=== PATIENT | male | born 1940 | race Caucasian/White ===

== ENCOUNTER 2016-06-08 07:47 | Inpatient (IN) | payer MEDICARE, OTHER ==
[~2016-06-08] VITALS: Ht 170.2 cm; Wt 97.3 kg
--- NOTE | 2016-06-08 05:46 | MH ---
cc: ROBERT SOLANO M.D. DATE OF ADMISSION: 06/08/2016 ADMISSION DIAGNOSIS Right sacroiliitis. HISTORY This is a 75-year-old patient with significant right hip pain. Investigative studies show evidence of inflammatory changes of the right sacroiliac joint. Despite conservative care the patient is painful and symptomatic. This patient has had several injections. These injections relieved 100% of the pain for a short period of time but the pain returns. The patient is felt to be a candidate for surgical treatment. PAST MEDICAL HISTORY, SOCIAL HISTORY, FAMILY HISTORY, REVIEW OF SYSTEMS See attached notes. PHYSICAL EXAMINATION HEENT: Normocephalic, atraumatic. Pupils equal, round, reactive to light and accommodation. Extraocular motions intact. NECK: Supple. CHEST: Clear. HEART: Regular rate and rhythm. ABDOMEN: Soft, nontender with normoactive bowel sounds. MUSCULOSKELETAL EXAMINATION: Thoracolumbar spine restricted range of motion, pain with range of motion. Tenderness directly over the sacroiliac joint. Provocative maneuvers are positive for Ganga's maneuver, thigh thrust, compression and distraction across the sacroiliac joint. NEUROLOGIC AND VASCULAR EXAMINATION: Within normal limits. IMPRESSION Right sacroiliitis. PLAN Right sacroiliac joint fusion with Zyga fusion system and bone grafting. CONSENT There are risks with surgery including infection, bleeding, loss of motion, continued pain, need for further surgery, neurologic and vascular injury. The patient understands these issues and wishes to press on with surgery as outlined above. MD NEO Tapia/RICHAR /9:36 PM /4:38 AM
[~2016-06-08 07:47] MED LIST: CALC1TAB53 PO; CELE1CAP8 PO; CHOL1CAP60 CHEW; FERR1TAB36 PO; OMEP20TA PO; OXYC1TAB63 PO; PRIN5TAB PO; THERTAB27 PO
[2016-06-08 08:27] VITALS: BP 137/80; PULSE 78; RESP 18; TEMP 97.9; O2SAT 95
[2016-06-08] MEDS ORDERED: VANCOMYCIN HCL 1000 MG VIAL ONE (08:30)
[2016-06-08] MEDS ORDERED: SODIUM CHLORID 0.9% 500 ML IV SCH (08:30)
[2016-06-08] MEDS ORDERED: INSULIN HUMAN REGULAR 1,000 UNITS/10 ML VIAL SQ PRN (08:30)
[2016-06-08] MEDS ORDERED: SODIUM CHLOR 0.9% 250 ML INJ 250 ML ONE (08:30)
[2016-06-08] MEDS ORDERED: METOPROLOL TARTRATE 25 MG TAB PO PRN (08:30)
[2016-06-08] MEDS ORDERED: LACTATED RINGER'S 1000 ML IV SCH (08:30)
[2016-06-08] MEDS ORDERED: POVIDONE IODINE 7.5% SCRUB 118 ML BOTTLE TOP SCH (08:45)
[2016-06-08] MEDS ORDERED: VANCOMYCIN 1000 MG/NS 250 ML (for <70 kg) IV SCH ×2 (08:45)
[2016-06-08] MEDS ORDERED: ceFAZolin 2 GM PREMIX 50 ML IV SCH (08:45)
[2016-06-08] MEDS ORDERED: BUPIVACAINE/EPINEPHRINE 0.25% 50 ML VIAL ONE (08:56)
[2016-06-08] MEDS ORDERED: GENTAMICIN SULFATE 80 MG/2 ML VIAL ONE (08:56)
[2016-06-08] MEDS ORDERED: LACTATED RINGER'S 1000 ML INJ 1,000 ML IV ONE (12:00)
[2016-06-08] MEDS ORDERED: PROPOFOL 200 MG/20 ML AMP IV ONE (12:00)
[2016-06-08] MEDS ORDERED: NEOSTIGMINE 3 MG/3 ML SYR IV ONE (12:00)
[2016-06-08] MEDS: LACTATED RINGER'S 1000 ML INJ 1,000 ML IV SCH (12:16)
[2016-06-08] MEDS ORDERED: MAGNESIUM HYDROXIDE SUSP 30 ML CUP PO PRN (12:30)
[2016-06-08] MEDS ORDERED: BISACODYL 10 MG SUPP PR PRN (12:30)
[2016-06-08] MEDS ORDERED: NALOXONE HCL 0.4 MG/ML AMP IV PRN (12:30)
[2016-06-08] MEDS ORDERED: oxyCODONE/ACETAMINOPHEN 5 MG/325 MG TAB PO PRN ×2 (12:30)
[2016-06-08] MEDS ORDERED: ALUMINUM/MAGNESIUM/SIMETH 30 ML CUP PO PRN (12:30)
[2016-06-08] MEDS ORDERED: ONDANSETRON HCL 4 MG/2 ML VIAL IVP PRN (12:30)
[2016-06-08] MEDS ORDERED: Post-op Orders (for Pharmacy) MISC XX ONE (12:30)
[2016-06-08] MEDS ORDERED: TEMAZEPAM 15 MG CAP PO PRN (12:30)
[2016-06-08] MEDS ORDERED: MORPHINE SULFATE 8 MG/ML INJ IV PUSH PRN (12:30)
[2016-06-08] MEDS ORDERED: SODIUM CHLORIDE 0.9% FLUSH 5 ML FLUSH IVF PRN (12:30)
--- NOTE | 2016-06-08 12:31 | PD.OP ---
cc: Raleigh Zacarias MD Operative Report Date of Surgery: Jun 08, 2016 Preoperative Diagnosis: Right sacroiliitis Postoperative Diagnosis: Same Procedure: Right sacroiliac joint fusion with internal fixation. Bone grafting of the sacroiliac joint Anesthesia: Gen. Surgeon: Raleigh Zacarias Food Broker(s): TRACEY Francisco Operation and Findings: EBL: 100 cc INDICATIONS: This patient is a 75-year-old male with significant sacroiliac joint dysfunction. The patient has had extensive conservative care including multiple injections, oral medications, altered activity and use of an assistive gait aid. He has failed all conservative care which has extended for greater than 1 year. He presents now for surgical treatment. NOTE: Betty Francisco PA-C was present for the entire surgical procedure as my floor covering printer assistant. In my medical opinion her skill and care was necessary for proper management of this patient. COMPANY: [email or web address] Primary screw: 60 mm. Secondary screw: 5 mm PROCEDURE: The patient was brought the operating room and anesthetized in the supine position. The patient was positioned prone on a Ethan table. Fluoroscopy was brought in from the opposite side of the table. Inlet view, utlet view and lateral views were taken. Skin markings were prepared. A 1.5 cm incision was made in line with a line from the greater sciatic notch and the cephalad border of the sacrum. We used a starting point that was approximately 1/2-2/3 from the sciatic notch. A pin was then placed across the sacroiliac joint controlling position in the inlet view, outlet view and lateral. The pin was positioned to the edge of the sacroiliac joint and into the sacroiliac joint. A proper tube was utilized. This was then drilled to proper size and a guide tube was fixated to the bone. We used the SImmetry system. We then used a scraper followed by use of a series of cutting devices gaining entrance into the sacroiliac joint and opening and removing cartilaginous material from the sacroiliac joint. Reamings from the drilling was saved and used with demineralized bone matrix. We used the proper size reamers which were deployed to their fullest extent. We then placed bone graft using the bone graft placement device. And then advanced the pin into the ilium. This was measured carefully for proper length screw. We used the drill to go past the other cortex of the sacroiliac joint. We used a primary screw first placing into good position within the sacral ala and in the region of the S1 vertebral body. Position was very satisfactory A second pin was advanced placing it between the first and second sacral foramen. This was checked in the inlet view outlet view and lateral. This was drilled and measured properly for a proper length secondary screw. The secondary screw was positioned without complication. Intraoperative x-rays were obtained. Alignment was satisfactory. The wound was irrigated copiously with antibiotic irrigation. The fascia was closed with interrupted Vicryl suture skin and subcutaneous tissue with 3-0 Vicryl suture followed by Dermabond. The sponge count needle counts and sponge counts were all correct. The patient tolerated the procedure well as taken to the recovery room in satisfactory condition. FINDINGS: Significant sclerotic changes of the sacroiliac joint were noted. There was no complication was noted. The patient appeared to tolerate the procedure well. Raleigh Zacarias MD Jun 08, 2016 12:31
[2016-06-08] MEDS ORDERED: OXYC1TAB63 PO (12:32)
[2016-06-08] MEDS ORDERED: MORPHINE SULFATE 4 MG/ML INJ ONE (12:42)
[2016-06-08] MEDS ORDERED: ARTIFICIAL TEARS OPTH OINT 3.5 APPLIC/3.5 GM TUBO ONE (12:42)
[2016-06-08] MEDS ORDERED: DO NOT ADM ANY ANTICOAGULANT DRUGS XX PRN (13:00)
[2016-06-08] MEDS ORDERED: *morphine SULFATE 8 MG/ML PERIprocedure ONLY ONE ×2 (13:18→13:32)
[2016-06-08] MEDS: MORPHINE SULFATE 30 MG/30 ML PCA IV SCH (13:24)
[2016-06-08] MEDS ORDERED: PCA - TOTAL MG MORPHINE DELIVERED PER SHIFT SCH (14:00)
--- NOTE | 2016-06-08 14:11 | RADRPT ---
EXAM DATE/TIME: 06/08/2016 10:45 [facility] COMPARISON: No previous studies available for comparison. INDICATIONS : Fusion right sacrum. MEDICAL HISTORY : None. SURGICAL HISTORY : None. ENCOUNTER: Initial ACUITY: 1 day PAIN SCORE: Non-responsive. LOCATION: Right sacrum FINDINGS: 3 images from the OR have been obtained. There appeared be 2 screws through the right sacroiliac join t. There is a right hip prosthesis in place. CONCLUSION: Surgical hardware as described above. August Bales MD on June 08, 2016 at 14:08 Board Certified Radiologist. This report was verified electronically.
[2016-06-08] MEDS: CEFAZOLIN IV SCH ×2 (15:00→22:55)
[2016-06-08] MEDS: SODIUM CHLORIDE 0.9% IV SCH ×2 (15:00→22:55)
[2016-06-08 19:00] VITALS: BP 123/71; PULSE 69; RESP 16; TEMP 97.4; O2SAT 99
[2016-06-08 20:21] VITALS: O2SAT 96
[2016-06-08] MEDS: SODIUM CHLORIDE 0.9% FLUSH 5 ML FLUSH IVF SCH (22:55)
[2016-06-08 23:50] VITALS: BP 125/72; PULSE 71; RESP 17; TEMP 97.1; O2SAT 97
[2016-06-09] MEDS: LACTATED RINGER'S 1000 ML INJ 1,000 ML IV SCH ×2 (00:46→02:51)
[2016-06-09] MEDS: MORPHINE SULFATE 30 MG/30 ML PCA IV SCH (02:11)
[2016-06-09] MEDS: CEFAZOLIN IV SCH (02:50)
[2016-06-09] MEDS: SODIUM CHLORIDE 0.9% IV SCH (02:50)
[2016-06-09 04:20] VITALS: BP 119/65; PULSE 65; RESP 16; TEMP 97; O2SAT 97
[2016-06-09 07:45] VITALS: O2SAT 97
[2016-06-09 08:00] VITALS: BP 115/67; PULSE 78; RESP 16; TEMP 96.9; O2SAT 100
[2016-06-09] MEDS ORDERED: PANTOPRAZOLE SOD 40 MG DELAYED RELEASE TAB PO SCH (09:00)
[2016-06-09] MEDS ORDERED: LISINOPRIL 5 MG TAB PO SCH (09:00)
[2016-06-09] MEDS: SODIUM CHLORIDE 0.9% FLUSH 5 ML FLUSH IVF SCH (09:00)
[2016-06-09 12:00] VITALS: BP 109/63; PULSE 79; RESP 16; TEMP 97.9; O2SAT 96
[2016-06-09] MEDS ORDERED: WALKER WHEELS/F1 MIS (13:09)
--- NOTE | 2016-06-09 13:09 | HHI.DCPOC ---
Discharge Care Plan Diagnosis: (1) Sacroiliitis Your Health Problems Are: Incision/Drains Goals to Promote Your Health * To prevent worsening of your condition and complications * To maintain your health at the optimal level Directions to Meet Your Goals Take your medications as prescribed Follow your dietary instruction Follow activity as directed Keep your appointments as scheduled Take your immunizations and boosters as scheduled If your symptoms worsen call your PCP, if no PCP go to Urgent Care Center or Emergency Room Smoking is Dangerous to Your Health. Avoid second hand smoke Call the 24-hour hour crisis hotline for domestic abuse at [facility] Jun 09, 2016 13:09
--- NOTE | 2016-06-09 13:11 | HHI.DS ---
Discharge Summary Admission Date Jun 08, 2016 at 12:17 Discharge Date: Jun 09, 2016 Admitting Diagnosis see below Diagnosis: (1) Sacroiliitis Diagnosis: Principal Procedures Right sacroiliac joint fusion Brief History This is a 75 year old male patient with a history of signficant low back pain, more right than left. 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 Conservative care was attempted with medications and exercises. He was referred to pain management for injections. He has significant relief with right SI joint injections. Surgical treatment was recommended and he elected to move forward. Hospital Course Surgical treatment was performed on the day of admission without complication. He recovered well in pACU and was transferred to the orthopaedic floor. Pain was controlled with IV and oral medications. He was compliant with physical therapy and toe toch weightbearing restrictions. After 1 day he was found to be stable and discharged home with instruction to continue limited weightbearing and to pursue a high fiber diet for the next 3-5 days. Pt Condition on Discharge: Stable Discharge Disposition: Discharge Home Discharge Instructions Diet Instructions: As Tolerated, No Restrictions, High Fiber Diet Activities You Can Perform: Toe Touch Weight Bearing Activities to Avoid: Strenuous Activity Additional Activity Instruc.: TTWBing RLE for 4 weeks postop New Medications: Walker with Front Wheels (Walker with Front Wheels) 1 Mis Mis 1 EA .ROUTE DIRECTED #1 Ref 0 EA Oxycodone-Acetaminophen (Oxycodone-Acetaminophen) 5-325 mg Tab 1 TAB PO Q4H PRN PAIN LESS THAN 5 ON SCALE #50 TAB Continued Medications: Mkzneqk-Pympebsrq-Whbl (Calcium & Magnesium + Zinc) 334-134-5 Mg Tab 1 TAB PO DAILY Nutritional Supplement TAB Celecoxib (Celecoxib) 200 Mg Cap 200 MG PO DAILY Pain Management Ref 0 CAP Cholecalciferol (Vitamin D3 Super Strength) 2,000 Unit Cap 2000 UNITS CHEW DAILY CAP Ferrous Sulfate (Iron) 325 Mg Tab 325 MG PO DAILY Take Nutritional Supplement Ref 0 TAB Lisinopril (Prinivil) 5 Mg Tab 5 MG PO DAILY Blood Pressure Management #30 Ref 0 TAB Multiple Vitamins W/ Minerals (Theragran-M) 1 Tab 1 TAB PO DAILY Nutritional Supplement Ref 0 TAB Omeprazole (Omeprazole) 20 Mg Tab 20 MG PO DAILY Reflux #30 Ref 0 TAB Oxycodone-Acetaminophen (Oxycodone-Acetaminophen) 5-325 mg Tab 1 TAB PO Q6H PRN PAIN Ref 0 TAB Port[facility] Jun 09, 2016 13:11
--- NOTE | 2016-06-09 13:13 | PD.ORT.PN ---
Subjective Subjective Remarks Moderate low back pain. No new radiating leg pain. Some aching. Appetite good. Urinating well. Some lightheadedness this morning. Ready for d/c home. Objective Vitals Vital Signs Date Time Temp Pulse Resp B/P Pulse Ox O2 Delivery O2 Flow Rate FiO2 06/09/16 08:00 96.9 78 16 115/67 100 06/09/16 07:45 97 Nasal Cannula 3.00 06/09/16 04:20 97.0 65 16 119/65 97 06/09/16 02:16 16 06/09/16 02:11 16 06/08/16 23:50 97.1 71 17 125/72 97 06/08/16 22:00 16 06/08/16 20:21 96 Nasal Cannula 3.00 06/08/16 19:00 97.4 69 16 123/71 99 06/08/16 18:40 97.0 67 16 130/78 94 Nasal Cannula 2 06/08/16 17:45 65 16 121/72 94 Nasal Cannula 2 06/08/16 16:45 73 16 129/88 94 Nasal Cannula 2 06/08/16 15:45 97.8 62 18 130/74 94 Nasal Cannula 2 06/08/16 14:30 65 22 128/76 94 Nasal Cannula 2 06/08/16 13:30 67 22 127/76 96 Nasal Cannula 2 06/08/16 13:24 20 06/08/16 13:15 65 22 128/74 97 Nasal Cannula 2 I/O 06/08/16 06/08/16 06/08/16 06/09/16 06/09/16 06/09/16 07:00 15:00 23:00 07:00 15:00 23:00 Intake Total 1908 ml 175 ml 480 ml Output Total 100 ml 0 ml 350 ml Balance 1808 ml 175 ml 130 ml Intake Oral 480 ml IV Total 108 ml 175 ml Other 1800 ml Output Urine Total 0 ml 350 ml Estimated Blood Loss 100 ml # Bowel Movements 0 Procedures Right sacroiliac joint fusion Objective Remarks Laying in bed, NAD VSS With RLE Posterior buttock dressing intact, c/d/i, minimal drainage, mild swelling +motor at, +sens, +nvi neg homans RLE Assessment & Plan Ortho Post Op Day #: 1 Problem List: (1) Sacroiliitis Assessment and Plan pod#1 s/p R SI joint fusion Doing well. Some lightheadedness this am but better Ok to d/c home later today. TTWBing RLE. Use of walker for 4 weeks. Dry dressing changes daily beginning pod#2. PO pain meds as needed. Percocet written for home. F/U in 2 weeks as scheduled. Portia Cole Jun 09, 2016 13:13
[2016-06-09 17:56] VITALS: O2SAT 96
[2016-06-09] MEDS ORDERED: MULTIVITAMINS/MINERALS THERAPEUTIC TAB PO SCH (21:00)
[2016-06-09] MEDS ORDERED: DOCUSATE SODIUM 100 MG CAP PO SCH (21:00)
== END 2016-06-09 18:00 | disposition home or self-care (01) | DRG 460 ==
LOC: HSDC 07:47 → HSDI 12:17 → N06A 18:55
PROVIDERS: ADMIT Orthopaedic Surgery Orthopaedic Surgery of the Spine; ATTEND Orthopaedic Surgery Orthopaedic Surgery of the Spine
PROC: 0SG704Z Fusion of Right Sacroiliac Joint with Internal Fixation Device, Open Approach (ICD-10-PCS; 2016-06-08)
PROC: 0SG707Z Fusion of Right Sacroiliac Joint with Autologous Tissue Substitute, Open Approach (ICD-10-PCS; principal; 2016-06-08 10:03)
DX: M46.1 Sacroiliitis, not elsewhere classified (principal); R42 Dizziness and giddiness
CPT/HCPCS: 76000; 94150; C1713; J0690; J1580; J2270; J2405; J2710; J3010; J3370; J7050; J7120